=== PATIENT | male | born 1985 ===

== ENCOUNTER 2017-01-03 21:48 | Emergency (ER) | payer OTHER ==
[2017-01-03 21:54] VITALS: BMI 30.1
[2017-01-03 22:27] VITALS: BP 146/89; PULSE 96; RESP 16; TEMP 98.5; O2SAT 95
--- NOTE | 2017-01-03 22:29 | ED PDOC ---
Arrival/HPI - General Time Seen by Provider: 01/03/17 22:15 Historian: Patient - History of Present Illness Narrative History of Present Illness (Text): 01/03/17 22:15 31 y/o male, no significant pmh, nkda, c/o rt. forearm pain s/p insect bite x 3 days. Pt. stated that he was bitten by an unknown insect about 3 days ago, been scratching on it and noted to have redness, opened with the razor blade at home with mild skin cut, no fever or chill, no rash, no numbness or tingling, no other medical or psychological complaints. Past Medical History - Provider Review Nursing Documentation Reviewed: Yes Family/Social History - Physician Review Nursing Documentation Reviewed: Yes Family/Social History: Unknown Family HX Allergies/Home Meds Allergies/Adverse Reactions: Allergies No Known Allergies Allergy (Verified 01/03/17 21:54) Review of Systems - Review of Systems Constitutional: absent: Fatigue, Fevers Eyes: absent: Vision Changes ENT: absent: Hearing Changes Respiratory: absent: SOB, Cough Cardiovascular: absent: Chest Pain Gastrointestinal: absent: Abdominal Pain, Diarrhea, Nausea, Vomiting Skin: Rash, Skin Lesions, Abscess, Cellulitis. absent: Pruritis, Laceration, Ulcer Neurological: absent: Headache, Dizziness Physical Exam Vital Signs Reviewed: Yes Vital Signs Temp Pulse Resp BP Pulse Ox 01/03/17 21:50 98.5 F 96 H 16 146/89 95 Temperature: Afebrile Blood Pressure: Normal Pulse: Regular Respiratory Rate: Normal Appearance: Positive for: Well-Appearing, Non-Toxic, Comfortable Pain Distress: Moderate Mental Status: Positive for: Alert and Oriented X 3 - Systems Exam Head: Present: Atraumatic, Normocephalic Pupils: Present: PERRL Extroacular Muscles: Present: EOMI Conjunctiva: Present: Normal Mouth: Present: Moist Mucous Membranes Neck: Present: Normal Range of Motion Respiratory/Chest: Present: Clear to Auscultation, Good Air Exchange. No: Respiratory Distress, Accessory Muscle Use Cardiovascular: Present: Regular Rate and Rhythm, Normal S1, S2. No: Murmurs Abdomen: Present: Normal Bowel Sounds. No: Tenderness, Distention, Peritoneal Signs Back: Present: Normal Inspection Upper Extremity: Present: Normal Inspection, Other (Rt. forearm: visible approx. [id number] cellulitis with approx. 2cm diameter fluctuant noted, no streaking or ulcers, FROM without limitation, sensation intact, motor 5/5, + radial pulse, capillary refill< 2 seconds, neurovasuclar intact. ). No: Cyanosis, Edema Lower Extremity: Present: Normal Inspection. No: Edema Neurological: Present: GCS=15, Speech Normal, Motor Func Grossly Intact, Gait Normal, Memory Normal Skin: Present: Warm, Dry, Normal Color. No: Rashes Psychiatric: Present: Alert, Oriented x 3, Normal Insight, Normal Concentration Medical Decision Making ED Course and Treatment: 01/03/17 22:39 -bedside sonogram performed by me show there is no pouches of the abscess noted with approx. 1 beneath the epidermal skin. -keflex/bactrim/motrin -sensation intact, motor 5/5, wound irrigate with normal saline, clean with betadine, 1% lidocaine injected approx. 0.5cc, #11 blade made 1cm incision, approx. 2cc of fluctuant abscess released, 1/4 packing inserted, hemostasis obtained, bacitracin and gauze dressing, sensation intact, motor 5/5. 01/03/17 23:19 -Discharge home with keflex, bactrim ds, motrin, keep the dressing dry and clean , return to the ER in 2 days for wound check/packing and dressing change, follow up with your own pmd and general surgeon within 2 days, return to the ER for any new or worsening signs or symptoms. 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 Disposition/Present on Arrival - Present on Arrival Any Indicators Present on Arrival: No History of DVT/PE: No History of Uncontrolled Diabetes: No Urinary Catheter: No History of Decub. Ulcer: No - Disposition Have Diagnosis and Disposition been Completed?: Yes Diagnosis: Abscess, Cellulitis Disposition: HOME/ ROUTINE Disposition Time: 23:20 Patient Plan: Discharge Condition: GOOD Discharge Instructions (ExitCare): Cellulitis (ED) Additional Instructions: -Discharge home with keflex, bactrim ds, motrin, keep the dressing dry and clean , return to the ER in 2 days for wound check/packing and dressing change, follow up with your own pmd and general surgeon within 2 days, return to the ER for any new or worsening signs or symptoms. Prescriptions: Cephalexin [Keflex] 500 mg PO QID #40 capsule Ibuprofen [Motrin Tab] 800 mg PO TID PRN #21 tab PRN Reason: Other Sulfamethoxazole/Trimethoprim [Bactrim Ds Tablet] 1 tab PO BID #20 tablet Referrals: Michelle Banegas [Primary Care Provider] - Follow up with primary Ignacio Yost MD [Staff Provider] - [facility] up with primary [facility] [place] [facility] [place] - Follow up with primary Forms: WORK NOTE
[2017-01-03] MEDS ORDERED: Tmp-Smz 800 mg-160 mg DS Tab PO STA (22:35)
== END 2017-01-03 23:28 | disposition home or self-care (01) ==
LOC: ED 21:48
DX: L02.413 Cutaneous abscess of right upper limb (principal); L03.113 Cellulitis of right upper limb